=== PATIENT | male | born 2000 | race Caucasian/White ===

== ENCOUNTER 2023-05-23 21:04 | Emergency (ER) | payer BC ==
[~2023-05-23] VITALS: Ht 172.7 cm; Wt 120.1 kg
[2023-05-23 21:16] VITALS: TEMP 98.8; O2SAT 98
[2023-05-23] MEDS: PENICILLIN G BENZATHINE 1,200,000 UNITS/2ML SYR IM ONE (22:30)
[2023-05-23] MEDS: LIDOCAINE HCL 1% 20ML VIAL (Pyxis) INJ INFIL ONE (23:00)
[2023-05-24 00:24] VITALS: BP 139/83; PULSE 83; RESP 17
== END 2023-05-24 00:30 | disposition home or self-care (01) ==
LOC: ER 21:04
DX: J02.9 Acute pharyngitis, unspecified (principal); R51.9 Headache, unspecified; R50.9 Fever, unspecified
CPT/HCPCS: 99283; 87430; 87070; 96372; J0561; J3490